=== PATIENT | female | born 1960 | race Caucasian/White ===

== ENCOUNTER 2017-08-21 14:07 | Inpatient (IN) | payer SELFPAY ==
[2017-08-21] MEDS ORDERED: 0.9 % SODIUM CHLORIDE 10 ML DISP.SYRIN. IV (14:45)
[2017-08-21] MEDS: fentaNYL PF VIAL 100 MCG/2 ML VIAL IV ×2 (15:04→18:48)
[2017-08-21] MEDS ORDERED: IBUPROFEN 600 MG TABLET. PO (15:30)
[2017-08-21] MEDS: IBUPROFEN 800 MG TABLET. PO (20:20)
[2017-08-21] MEDS ORDERED: NAPROXEN 250 MG TABLET PO (21:00)
[2017-08-22] MEDS: IBUPROFEN 800 MG TABLET. PO ×4 (00:20→19:31)
[2017-08-22] MEDS: HYDROcodone/APAP 7.5/325MG 1 TAB TABLET PO ×4 (00:20→21:27)
[2017-08-22 04:50] LABS: ADD MAN DIFF? NO
[2017-08-22 05:00] LABS: BASO # 0.1 x10^3/uL (0.0-0.2); BASO % 1 % (0-3); EOS # 0.1 x10^3/uL (0.0-0.7); EOS % 1 % (0-3); HEMATOCRIT 35.5 % (36.0-47.0); LYMPH # 2.3 x10^3/uL (1.0-4.8); LYMPH % 22 % (24-48); MEAN CORPUSCULAR HEMOGLOBIN 31 pg (25-35); MEAN CORPUSCULAR HGB CONC 34 g/dL (31-37); MEAN CORPUSCULAR VOLUME 91 fL (79-100); MONO # 0.7 x10^3/uL (0.0-1.1); MONO % 7 % (0-9); NEUT # 7.3 x10^3uL (1.8-7.7); NEUT % 70 % (31-73); PLATELET COUNT 149 x10^3/uL (140-400); RED CELL DISTRIBUTION WIDTH 13.9 % (11.5-14.5); WHITE BLOOD COUNT 10.4 x10^3/uL (4.0-11.0)
[2017-08-22 05:37] LABS: ALBUMIN 2.9 g/dL (3.4-5.0); ALBUMIN/GLOBULIN RATIO 0.8 (1.0-1.7); ALK PHOS 125 U/L (46-116); ALT (SGPT) 22 U/L (14-59); ANION GAP 9 (6-14); AST (SGOT) 16 U/L (15-37); BLOOD UREA NITROGEN 21 mg/dL (7-20); BUN/CREATININE RATIO 23 (6-20); CALCIUM 7.6 mg/dL (8.5-10.1); CARBON DIOXIDE 26 mmol/L (21-32); CHLORIDE 104 mmol/L (98-107); CREATININE 0.9 mg/dL (0.6-1.0); GFR 64.5; GLUCOSE 88 mg/dL (70-99); POTASSIUM 3.8 mmol/L (3.5-5.1); SODIUM 139 mmol/L (136-145); TOTAL BILIRUBIN 1.3 mg/dL (0.2-1.0); TOTAL PROTEIN 6.4 g/dL (6.4-8.2)
[2017-08-22] MEDS: MULTIVITAMIN with MINERAL TABLET. PO (08:44)
[2017-08-22] MEDS ORDERED: INFLUENZA VAX SCREEN BY RX. MC (09:00)
[2017-08-22] MEDS: FLU VACC QS2017-18 (36MOS+)/PF 0.5 ML SYRINGE. VAX IM (12:20)
[2017-08-23] MEDS: HYDROcodone/APAP 7.5/325MG 1 TAB TABLET PO ×3 (04:17→17:41)
[2017-08-23] MEDS: IBUPROFEN 800 MG TABLET. PO ×3 (04:17→17:41)
[2017-08-23] MEDS: ERGOCALCIFEROL (VITAMIN D2) 50,000 UNIT CAPSULE. PO (08:42)
[2017-08-23] MEDS: MULTIVITAMIN with MINERAL TABLET. PO (08:42)
[2017-08-23] MEDS: VITAMIN A 10,000 UNIT CAPSULE. PO (08:42)
[2017-08-23] MEDS: DOCUSATE SODIUM 100 MG CAPSULE. PO (10:34)
[2017-08-23] MEDS: ENOXAPARIN 40 MG/0.4 ML SYRINGE. SQ (10:35)
[2017-08-24] MEDS: HYDROcodone/APAP 7.5/325MG 1 TAB TABLET PO ×2 (04:21→11:41)
[2017-08-24] MEDS: IBUPROFEN 800 MG TABLET. PO ×2 (04:21→11:41)
[2017-08-24] MEDS: MULTIVITAMIN with MINERAL TABLET. PO (09:13)
[2017-08-24] MEDS: DOCUSATE SODIUM 100 MG CAPSULE. PO (09:13)
[2017-08-24] MEDS: ENOXAPARIN 40 MG/0.4 ML SYRINGE. SQ (09:13)
[2017-08-24] MEDS: CYCLOBENZAPRINE 10 MG TABLET. PO ×2 (09:13→16:35)
[2017-08-24] MEDS: oxyCODONE/APAP 5/325 1 TAB TABLET PO (16:35)
[2017-08-25] MEDS: IBUPROFEN 800 MG TABLET. PO (02:47)
[2017-08-25] MEDS: HYDROcodone/APAP 7.5/325MG 1 TAB TABLET PO ×2 (02:47→11:59)
[2017-08-25 06:16] LABS: ADD MAN DIFF? NO
[2017-08-25 06:25] LABS: BASO % 1 % (0-3); EOS # 0.1 x10^3/uL (0.0-0.7); EOS % 2 % (0-3); HEMATOCRIT 34.1 % (36.0-47.0); HEMOGLOBIN 11.2 g/dL (12.0-15.5); LYMPH % 29 % (24-48); MEAN CORPUSCULAR HEMOGLOBIN 30 pg (25-35); MEAN CORPUSCULAR HGB CONC 33 g/dL (31-37); MEAN CORPUSCULAR VOLUME 91 fL (79-100); MONO # 0.6 x10^3/uL (0.0-1.1); MONO % 9 % (0-9); NEUT # 4.1 x10^3uL (1.8-7.7); NEUT % 60 % (31-73); PLATELET COUNT 175 x10^3/uL (140-400); RED BLOOD COUNT 3.76 x10^6/uL (3.50-5.40); RED CELL DISTRIBUTION WIDTH 14.2 % (11.5-14.5); WHITE BLOOD COUNT 6.8 x10^3/uL (4.0-11.0)
[2017-08-25] MEDS: ENOXAPARIN 40 MG/0.4 ML SYRINGE. SQ (08:41)
[2017-08-25] MEDS: ERGOCALCIFEROL (VITAMIN D2) 50,000 UNIT CAPSULE. PO (08:41)
[2017-08-25] MEDS: oxyCODONE/APAP 5/325 1 TAB TABLET PO (08:41)
[2017-08-25] MEDS: MULTIVITAMIN with MINERAL TABLET. PO (08:41)
[2017-08-25] MEDS: DOCUSATE SODIUM 100 MG CAPSULE. PO (08:41)
[2017-08-25] MEDS: VITAMIN A 10,000 UNIT CAPSULE. PO (08:41)
[2017-08-25] MEDS ORDERED: ALPRAZolam 0.25 MG TABLET PO (09:15)
[2017-08-25] MEDS: CYCLOBENZAPRINE 10 MG TABLET. PO (11:59)
== END 2017-08-25 12:25 | disposition home or self-care (01) | DRG 562 ==
LOC: 4 NORTH 14:07
DX: S82.844A Nondisplaced bimalleolar fracture of right lower leg, initial encounter for closed fracture (principal); E43 Unspecified severe protein-calorie malnutrition; W18.39XA Other fall on same level, initial encounter; E66.9 Obesity, unspecified; G89.29 Other chronic pain; M47.26 Other spondylosis with radiculopathy, lumbar region; Z68.33 Body mass index [BMI] 33.0-33.9, adult; Z98.84 Bariatric surgery status; Z91.040 Latex allergy status; Z88.8 Allergy status to other drugs, medicaments and biological substances; Z91.048 Other nonmedicinal substance allergy status; Y93.89 Activity, other specified; Y92.89 Other specified places as the place of occurrence of the external cause; Y99.8 Other external cause status
CPT/HCPCS: 36415; 73610; 80053; 85025; 90686; 97116-GP; 97161-GP; 97166-GO; 97530-GO; 97530-GP; J1650; J3010